=== PATIENT | female | born 1930 | race Caucasian/White ===

== ENCOUNTER 2017-02-27 07:56 | Outpatient (CLI) | payer MEDICARE, BC ==
[~2017-02-27] VITALS: Ht 157.5 cm; Wt 47.3 kg
--- NOTE | ~2017-02-27 | HEMODYNAMI ---
PATIENT:ALPA COFFEY MEDICAL RECORD: [id number] : 34 LOCATION:D.CAT ADMISSION DATE: 02/27/17 Generatedon:02/27/201712:46 Patient name: ALPA COFFEY Patient #: [id number] : 1930 Date of study: 02/27/2017 Page: Of Hemodynamic Procedure Report Patient Data Patient Demographics Procedure consent was obtained First Name: ALPA Gender: Female Last Name: ERLINDA : 1930 Middle Initial: D Age: 86 year(s) Patient #: [id number] Race: SSN: [id number] Additional ID: [id number] Contact details [address]: [address] [place] [address] e3 State: [place] City: [place] Zip code: [address] Past Medical History Allergies Allergen Reaction Date Comments Reported Sulfa drugs 05/15/2016 Other allergy 05/15/2016 Levaquin, NSAIDS, Erythromycin, Fish Oil, Reglan NSAIDs 05/18/2016 Fluvastatin 05/18/2016 Sulfa drugs 05/18/2016 Other allergy 05/18/2016 EES, FISH OIL, LEVAQUIN, REGEAN, LESCOL Other allergy 02/27/2017 NSAIDS, Lescol, Sulfa, EES, Fish oil, Levaquin, Reglan. Admission Admission Data Admission Date: 02/27/2017 Admission Time: 7:56 Admit Source: Other Height (in.): 62 BSA: 1.45 (m2) Height (cm.): 157.48 BMI: 19.2 (kg/m2) Weight (lbs.): 105 Weight (kg.): 47.63 Lab Results Lab Result Date: 02/27/2017 Lab Result Time: 8:50 Biochemistry Name Units Result Min Max BUN mg/dl 12 --(-*--)-- 7 18 Creatinine mg/dl 0.5 -*(----)-- 0.6 1.3 CBC Name Units Result Min Max Hematocrit % 39.2 -*(----)-- 42 54 Hemoglobin g/dl 13.4 -*(----)-- 13.5 17.5 Procedure Procedure Types Cath Procedure Diagnostic Procedure LHC Coronaries only FFR/IVUS Intra-Coronary IVUS Initial PCI Procedure Coronary Stent Initial Procedure Description Procedure Date Procedure Date: 02/27/2017 Procedure Start Time: 12:27 Procedure End Time: 12:44 Procedure Staff Name Function Ubaldo Brewster MD Performing Physician Lisbeth Lynch RT Scrub Juma Mclaughlin RN Nurse Ric Roberts RT Monitor Procedure Data Cath Procedure Fluoroscopy Diagnostic fluoroscopy Total fluoroscopy Time: 4.1 time: 4.1 min min Diagnostic fluoroscopy Total fluoroscopy dose: 424 dose: 424 mGy mGy Contrast Material Contrast Material Type Amount (ml) Isovue 300 53 Entry Location Entry Primary Successful Side Size Upsize Upsize Entry Closure Singh ccessful Closure Location (Fr) 1 (Fr) 2 (Fr) Remarks Device Remarks Radial Right 6 Fr Mechanical artery Short Compression Diagnostic catheters Device Type Used For End Catheter Placement Diagnostic Terumo 5Fr Procedure Cuttyhunk 110cm catheter Procedure Complications No complications Procedure Medications Medication Administration Route Dosage Oxygen NC 2 l/min Heparin Flush Bag added to field 2 bags (1000units/500ml NS) 0.9% NaCl I.V. 100 ml/hr Radial Cocktail added to field 1 syringe (Verapomil 2mg/Nitro 400mcg/Heparin 1500units) Fentanyl I.V. 50 mcg Versed I.V. 1 mg Radial Cocktail I.A. 1 syringe (Verapomil 2mg/Nitro 400mcg/Heparin 1500units) Radial Cocktail I.A. 1 syringe (Verapomil 2mg/Nitro 400mcg/Heparin 1500units) Fentanyl I.V. 50 mcg Versed I.V. 1 mg Heparin Bolus I.V. 2500 units Hemodynamics Rest BSA: 1.45 (m2) HGB: 13.4 (g/dl) O2 Consumption: Estimated: 122.27 (ml/min) O2 Co nsumption indexed: Estimated:84.32 (ml/min/m) Heart Rate: 58 (bpm) Snapshots Pre Cath Intra NCS Post Cath Vital Signs Time Heart Resp SPO2 NIBP (mmHg) Rhythm Pain Sedation Rate (ipm) (%) Status Level (bpm) 12:11:37 60 17 95 166/60(119) NSR 0 (11) 10(A) , No pain 12:16:03 59 17 99 158/58(114) NSR 0 (11) 10(A) , No pain 12:20:29 57 18 98 141/51(107) NSR 0 (11) 10(A) , No pain 12:24:49 59 18 97 121/50(93) NSR 0 (11) 10(A) , No pain 12:29:03 72 19 96 126/51(106) NSR 0 (11) 9(A) , No pain 12:33:21 61 18 96 111/42(79) NSR 0 (11) 9(A) , No pain 12:37:33 59 17 96 101/41(73) NSR 0 (11) 9(A) , No pain 12:41:41 60 19 97 105/41(68) NSR 0 (11) 9(A) , No pain Medications Time Medication Route Dose Verified Delivered Reason Note s Effectiveness by by 12:17:19 Oxygen NC 2 l/min Juma Dennison Per physician Arnoldo Mclaughlin RN RN 12:17:30 Heparin Flush added 2 bags Juma Dennison used for Bag to Arnoldo Mclaughlin meat and seafood manager (1000units/500ml RN NS) 12:17:39 0.9% NaCl I.V. 100 Juma Dennison Per physician ml/hr Arnoldo Mclaughlin RN RN 12:17:47 Radial Cocktail added 1 Juma Dennison used for (Verapomil to syringe Arnoldo Mclaughlin RN procedure 2mg/Nitro field RN 400mcg/Heparin 1500units) 12:28:46 Fentanyl I.V. 50 mcg Juma Dennison for sedation Arnoldo Mclaughlin RN RN 12:28:51 Versed I.V. 1 mg Juma Dennison for sedation Arnoldo Mclaughlin RN RN 12:30:32 Radial Cocktail I.A. 1 Juma Conner for (Verapomil syringe Arnoldo Brewster MD vasodilation 2mg/Nitro RN 400mcg/Heparin 1500units) 12:34:11 Radial Cocktail I.A. 1 Juma Conner for (Verapomil syringe Arnoldo Brewster MD vasodilation 2mg/Nitro RN 400mcg/Heparin 1500units) 12:34:15 Fentanyl I.V. 50 mcg Juma Dennison for sedation Arnoldo Mclaughlin RN RN 12:34:20 Versed I.V. 1 mg Juma Dennison for sedation Arnoldo Mclaughlin RN RN 12:34:37 Heparin Bolus I.V. 2500 Juma Dennison for units Arnoldo Mclaughlin RN anticoagulation project manager retail Log Time Note 11:02:45 Time tracking: Regular hours 11:02:49 Plan of Care:Hemodynamics will remain stable., Cardiac rhythm will remain stable., Comfort level will be maintained., Respiratory function will remain adequate., Patient/ family verbilizes understanding of procedure., Procedure tolerated without complication., Recovers from procedure without complications.. 11:45:47 Ric Roberts RT(R) sent for patient. Start room use. 11:52:45 Admit Source: Other 11:59:52 Patient received from Pre/Post Procedure Room to CCL 2 Alert and oriented. Tansferred to table in Supine position. 11:59:53 Warm blankets applied, and ivana hugger turned on for patient comfort. 11:59:53 Correct patient and procedure confirmed by team. 11:59:54 Signed procedure consent form obtained from patient. 11:59:55 ECG and BP/O2 sat monitors applied to patient. 11:59:56 Full Disclosure recording started 12:10:20 Vital chart was started 12:16:40 Baseline sample Acquired. 12:16:46 Rhythm: sinus rhythm 12:16:55 H&P Date Dictated: 02/26/2017 Within 30 days and on chart., H&P Addendum completed by physician on day of procedure. (MUST COMPLETE FOR ALL OUTPATIENTS). 12:16:56 Pre-procedure instructions explained to patient. 12:16:56 Pre-op teaching completed and patient verbalized understanding. 12:16:58 Family in waiting room. 12:17:00 Patient NPO since Midnight. 12:17:19 Oxygen 2 l/min NC was administered by Juma Mclaughlin RN; Per physician; 12:17:30 Heparin Flush Bag (1000units/500ml NS) 2 bags added to field was administered by Juma Mclaughlin RN; used for procedure; 12:17:39 0.9% NaCl 100 ml/hr I.V. was administered by Juma Mclaughlin RN; Per physician; 12:17:47 Radial Cocktail (Verapomil 2mg/Nitro 400mcg/Heparin 1500units) 1 syringe added to field was administered by Juma Mclaughlin RN; used for procedure; 12:18:29 Patient allergic to Other allergyNSAIDS, Lescol, Sulfa, EES, Fish oil, Levaquin, Reglan. 12:18:31 Is the patient allergic to Iodine/contrast media? No. 12:18:32 Is patient on blood thinner?Yes 12:18:34 ACC The patient was administered the following blood thiners within the last 24 hours: ACCPlavix 12:18:35 Patient diabetic? No. 12:18:37 Previous problem with sedation/anesthesia? No ? 12:18:38 Snore? Yes 12:18:38 Sleep apnea? Yes 12:18:39 Deviated septum? No 12:18:40 Opens mouth fully? Yes 12:18:40 Sticks out tongue? Yes 12:18:44 Airway obstruction? Yes COPD 12:18:46 Dentures? No ? 12:18:49 Modified Yuval's test Ulnar < 7 seconds 12:18:51 Patient pain scale 0/10 ?. 12:18:56 IV patent on arrival in left hand with 0.9% NaCl at [facility]. 12:21:56 Lab Result : BUN 12 mg/dl 12:21:56 Lab Result : Creatinine 0.5 mg/dl 12:21:56 Lab Result : Hemoglobin 13.4 g/dl 12:21:56 Lab Result : Hematocrit 39.2 % 12:22:00 Lab results completed and on chart. 12:22:03 Right Radial & Right Groin area was prepped with chlora-prep and draped in sterile fashion 12:22:04 Alarms reviewed by R. N. 12:22:04 Sharps counted by scrub and verified by R.N. 12:22:08 Use device set Radial Dx 12:22:12 Tegaderm 4 x 4 opened to sterile field. 12:22:13 Acist Manifold opened to sterile field. 12:22:14 Acist Hand Control opened to sterile field. 12:22:14 Acist Syringe opened to sterile field. 12:22:15 Farah Whisper J 300cm 0.014 guide wire opened to sterile field. 12:22:15 Medline Cath Pack opened to sterile field. 12:22:15 Bag Decanter opened to sterile field. 12::16 Terumo 6Fr Slender Glidesheath opened to sterile field. 12:22:16 St Freddie 260cm J .035 wire opened to sterile field. 12::31 Physician paged 12:: Physician arrived 12:: --------ALL STOP TIME OUT------ 12::52 Final Timeout: patient, procedure, and site verified with staff and physician. All members of the team are in agreement. 12::53 Right Radial & Right Groin site verified by team. 12::56 Physical assessment completed. ASA score P 2 - A patient with mild systemic disease as per Ubaldo Brewster MD. 12::59 Sedation plan: IV Moderate Sedation Versed, Fentanyl 12:27:40 Procedure started. 12::44 Local anesthetic to right radial artery with Lidocaine 2% by Ubaldo Brewster MD.INITIAL ACCESS ONLY 12::54 A 6 Fr Short sheath was inserted into the Right Radial artery 12::08 Patient Height : 157.48 cm 12:28:11 Patient Weight : 47.63 kg 12:28:46 Fentanyl 50 mcg I.V. was administered by Juma Mclaughlin RN; for sedation; 12::51 Versed 1 mg I.V. was administered by Juma Mclaughlin RN; for sedation; 12::22 A Diagnostic Terumo 5Fr Cuttyhunk 110cm catheter was advanced over the wire and used for Procedure. 12:29:39 Zero performed for pressure channel P1 12:30:32 Radial Cocktail (Verapomil 2mg/Nitro 400mcg/Heparin 1500units) 1 syringe I.A. was administered by Ubaldo Brewster MD; for vasodilation; 12:30:32 LCA angiography performed. 12:31:24 RCA angiography performed. 12:34:11 Radial Cocktail (Verapomil 2mg/Nitro 400mcg/Heparin 1500units) 1 syringe I.A. was administered by Ubaldo Brewster MD; for vasodilation; 12:34:15 Fentanyl 50 mcg I.V. was administered by Juma Mclaughlin RN; for sedation; 12:34:20 Versed 1 mg I.V. was administered by Juma Mclaughlin RN; for sedation; 12:34:25 [place] Pettigrew Eagleye IVUS Catheter opened to sterile field. 12:34:26 Medtronic Launcher 6Fr AR 2.0 guide catheter opened to sterile field. 12:34:27 Therio BasixCompak Inflation Kit opened to sterile field. 12:34:31 Catheter removed. 12:34:37 Heparin Bolus 2500 units I.V. was administered by Juma Mclaughlin RN; for anticoagulation; 12:34:43 6 Fr AR 2 guide catheter was inserted over the wire 12:34:47 WHISPER wire advanced. 12:36:00 Wire advanced across lesion. 12:36:04 IVUS catheter advanced over wire. 12:37:56 IVUS pass to RCA lesion performed. 12:37:57 IVUS catheter removed over wire. 12:38:00 Study PCI Site: [place] dRCA has 85% stenosis. 12:39:22 Inflation Number: 1 A Biofreedom 3.5 x 24 stent (No Cost Implant) was prepped and advanced across the Dist RCA. The stent was deployed at 15 DOLORES for 0:10 (min:sec). 12:40:02 Stent catheter was removed intact over wire. 12:40:02 Wire removed. 12:40:03 Guide catheter removed. 12:40:09 Terumo TR Band Standard opened to sterile field. 12:40:16 Sheath removed intact; hemostasis achieved with Mechanical Compression to the Right Radial artery. 12:40:18 Procedure ended.(Physican Out) 12:41:24 Fluoroscopy time 04.10 minutes. 12:41:28 Flurop Dose total: 424 12:41:28 Fluoroscopy dose: 424 mGy 12:42:29 Contrast amount:Isovue 300 53ml. 12:42:30 Sharps counted by scrub and verified by R.N. 12:42:33 TR band inflated with 11cc of air. 12:42:34 Insertion/operative site no bleeding no hematoma. 12:42:46 Post right radial artery:stable 12:42:49 Post Procedure Pulses reassessed and unchanged 12:42:52 Post-procedure physical assessment completed. ASA score P 2 - A patient with mild systemic disease as per Ubaldo Brewster MD. 12:42:54 Post procedure rhythm: unchanged. 12:42:55 Post procedure instruction explained to patient.Patient verbalizes understanding. 12:43:20 Procedure type changed to Cath procedure, Diagnostic procedure, [facility], Coronaries only, FFR/IVUS, Intra-Coronary IVUS Initial, PCI procedure, Coronary Stent Initial 12:44:22 Procedure and supply charges have been captured, reviewed, submitted and are correct. 12:44:34 Procedure Complication : No complications 12:44:35 Vital chart was stopped 12:44:36 See physician's report for complete and final results. 12:44:37 Report given to Pre/Post Procedure Room. 12:44:39 Patient transfered to Pre/Post Procedure Room with Stretcher. 12:44:41 Procedure ended. 12:44:41 Full Disclosure recording stopped 12:44:51 ACC-PCI Only Patient was given prescriptions, or instructed by Ubaldo Brewster MD to start/continue the following medications upon discharge: Plavix 12:45:55 End room use (Document Last) Intervention Summary Intervention Notes Time ActionType Lesion and Equipment Action# Pressure Duration Attributes Used 12:39:22 Place stent Dist RCA Biofreedom 1 15 00:10 3.5 x 24 stent (No Cost Implant) Device Usage Item Name Manufacture Quantity Catalog Hospital Part Current Minimal Lot# / Number Charge Number Stock Stock Serial# Code Tegaderm 4 3M 1 [id number] [id number] 266981 5 x 4 Acist Acist 1 68414 657257 541645 403260 5 Manifold Medical Systems Inc Acist Hand Acist 1 73013 987853 983812 012517 5 Control Medical Systems Inc Acist Acist 1 39186 013923 435514 364030 20 Syringe Medical Systems Inc Medline Cardinal 1 [id number] 220899 64755 418346 5 Cath Pack Health Bag Microtek 1 2001S 104869 17658 014153 5 bizk.it Inc. Terumo 6Fr Terumo 1 [id number] 453999 691439 124290 [address] Freddie 1 014752 382132 271968 203798 30 260cm J .035 wire Diagnostic Terumo 1 42-8088 075784 170523 143155 5 Terumo 5Fr Cuttyhunk 110cm catheter [place] Abingdon 1 [id number] 068211 803794 246874 8 Pettigrew Eagleye IVUS Catheter Medtronic Medtronic 1 [id number] 224214 89550 263344 1 Launcher 6Fr AR 2.0 guide catheter Merit Merit 1 [id number] 258346 090605 912513 15 BiogazelleixWowonyBridgePoint Medical Medical Inflation Kit Biofreedom Biosensors 1 [facility]2-3524 817232 936080 5 [id number] 3.5 x 24 [place] SA stent (No Cost Implant) Terumo TR Terumo 1 [id number] 638883 255505 478801 40 Band Standard Farah Farah 1 [id number] 123360 376687 334252 5 Whisper J Vascular 300cm 0.014 guide wire Signature Audit Dairy Stage Time Signature Unsigned Intra-Procedure 02/27/2017 Ric Roberts 12:46:44 PM RT(R) Signatures Monitor : Ric Roberts RT Signature : Date : Time : [facility] [address] [place] [address]
[~2017-02-27 07:56] MED LIST: ANTIVERT25 MG PO; BAYER CHEWABLE81 MG PO; BIOTIN PO; CLARITIN 10 MG10 MG PO; CO Q-10400 MG PO; CRESTOR10 MG PO; DEXILANT60 MG PO; DITROPAN X5 MG/BOTTL PO; FERRETTS324 MG PO; GAS-X125 M1 PO; GLUCOSAMINE HC500 MG PO; LUTEIN20 MG PO; MIRALAX17 GM PO; MULTIPLE VITAMI1 TA1 PO; NASACORT10.8 ML NASAL; OXYBUTYNIN CHLOR5 MG PO; PLAVIX75 MG PO; SINGULAIR10 MG PO; SYSTANE 0.3-0.4%5 ML EACH EYE; TOPROL XL100 MG PO; VITAMIN B-122500 MCG PO; VITAMIN D5000 UNIT PO
[2017-02-27] MEDS ORDERED: FLUTICASONE PRO16 GM NASAL (08:38)
[2017-02-27] MEDS ORDERED: SINGULAIR10 MG PO (08:40)
[2017-02-27] MEDS ORDERED: HYDROCODON-ACE1 EAC7 PO (08:42)
[2017-02-27 08:47] VITALS: BP 189/54; Ht 157.5 cm; Wt 47.3 kg
[2017-02-27 09:03] LABS: BASOPHILS 0.2 % (0-2); EOSINOPHILS 1.7 % (0-7); HEMATOCRIT 39.2 % (36.0-48.0); HEMOGLOBIN 13.4 g/dL (12-16); IMMATURE GRANULOCYTES 0.8 % (0-5); LYMPHOCYTES 32.9 % (15-50); MCH 31.9 pg (26.0-34.0); MCHC 34.2 g/dL (31.0-37.0); MCV 93.3 fL (80.0-100.0); MEAN PLATELET VOLUME 9.9 fL (7.4-10.4); MONOCYTES 10.9 % (2-11); NEUTROPHILS 53.5 % (40-80); PLATELET COUNT 178 10x3/uL (130-400); RDW 13.1 % (11.5-14.5)
[2017-02-27 09:16] LABS: CALC OSMOLALITY 265 mosm/kg (275-300); CALCIUM 8.6 mg/dL (8.5-10.1); CARBON DIOXIDE 26.3 mmol/L (21.0-32.0); CHLORIDE - SERUM 98 mmol/L (98-107); CREATININE - SERUM 0.5 mg/dL (0.6-1.3); GLUCOSE 98 mg/dL (74-106); POTASSIUM - SERUM 4.5 mmol/L (3.5-5.1); SODIUM 133 mmol/L (136-145); UREA NITROGEN 12 mg/dL (7-18); eGFR NON AFRICAN AMERICAN > 90 mL/min (90-120)
[2017-02-27 10:31] LABS: CKMB 2.3 U/L (0.0-3.6); CREATINE KINASE 74 UL (21-215); TROPONIN-I 0.027 ng/mL (0.000-0.060)
--- NOTE | 2017-02-27 13:16 | NUR ---
1300 RECEIVED PT FROM SPEECH LANG PATH THERAPIST, PT IS ALERT. DENIES ANY C/O CHEST PAIN, VSS. SINUS NATANAEL WITH RATE OF 59. DAUGHTER AT BEDSIDE, CALL LIGHT IN REACH. 1315 SANDWICH TRAY AND PO FLUIDS SERVED. PT DENIES ANY C/O. DAUGHTER AT BEDSIDE.
[2017-02-27] MEDS ORDERED: PLAVIX75 MG PO (13:43)
[2017-02-27] MEDS ORDERED: BAYER CHEWABLE81 MG PO (13:45)
--- NOTE | 2017-02-27 13:54 | NUR ---
1345 PT HAS TOLERATED SANDWICH, GRAPES AND PO FLUIDS WITH NO C/O NAUSEA. TR BAND IS CDI, AREA FREE FROM BLEEDING OR HEMATOMA. FINGERS WARM, CAP REFILL IS BRISK. SINUS BRADYCARDIA, DENIES ANY C/O CHEST PAIN.
[2017-02-27] MEDS ORDERED: MOBIC7.5 MG PO (14:25)
--- NOTE | 2017-02-27 16:04 | NUR ---
1445 PT ASSISTED TO THE BATHROOM X 2 NURSES, VOIDED QS. SMALL HEMATOMA NOTED AT TR BAND SITE UPON RETURN TO HER ROOM. KINSEY BLEVINS NOTIFIED, PRESSURE HELD AT SITE. 1448 KINSEY BLEVINS HERE WITH PT, ADJUSTED TR BAND WILL CONTINUE TO MONITOR, 1452 HEMATOMA ENLARGING, PRESSURE HELD AT SITE. STAMPING MILL TENDER NOTIFIED. 1456 KINSEY BLEVINS FROM STAMPING MILL TENDER HERE, READJUSTED TR BAND, LARGE HEMATOMA TO HAND AND WRIST BELOW CATH SITE AREA. WILL CONTINUE TO MONITOR. 1508 HEMATOMA ENLARGING, KINSEY BLEVINS HERE, TR BAND REMOVED AND PRESSURE HELD AT SITE. 1520 FEMSTOP APPLIED TO RIGHT BRACHIAL AREA BY STAMPING MILL TENDER STAFF. FINGERS RIGHT HAND ARE WARM, CAP REFILL IS BRISK, BANDAID APPLIED TO CATH SITE. PT HAS RECEIVED NORCO 10 MG PO FOR C/O PAIN TO RIGHT HAND AND ARM. 1525 DR MATA HERE WITH PT ASSESSING CATH SITE. HAS SPOKEN WITH FAMILY AND PT AND STATES WANTS TO ADMIT PT FOR OVERNIGHT OBSERVATION, PT AND FAMILY ARE AGREEABLE. DR MATA PUTTING IN ORDERS FOR ADMISSION.
--- NOTE | 2017-02-27 16:25 | NUR ---
[address], NO NEW BLEEDING OR HEMATOMA NOTED. FINGERS ARE WARM, CAP REFILL IS BRISK. PT DENIES ANY N/V DEFICIT TO HAND. DAUGHTER AT BEDSIDE. RADIAL PULSE IS PALPABLE. PT ABLE TO WIGGLE FINGERS AD WOO.
--- NOTE | 2017-02-27 16:40 | NUR ---
1600 NO CHANGE NOTED TO RIGHT HAND OR ARM, HEMATOMA NOT ENLARGING. PT DOES HAVE OOZING SMALL AMOUNT OF BLOOD FROM BANDAID PLACED TO SKIN OPENING RIGHT WRIST WHERE TR BAND EDGE HAD BEEN. DAUGHTER AT BEDSIDE, WILL CONTINUE TO MONITOR. 1630 NO CHANGE NOTED TO ARM/ HAND, HEMATOMA IS STABLE AND NOT ENLARGING. KINSEY BLEVINS HERE ASSESSING PT. CAP REFILL TO HAND IS BRISK, FINGERS WARM, RADIAL PULSE PALPABLE. HEMATOMA SOFTENING, HAND AND WRIST WITH LARGE AMOUNT OF BRUISING. PT HAS BEEN ON BEDPAN AND HAD LARGE BM. DENIES ANY OTHER C/O.
--- NOTE | 2017-02-27 17:55 | NUR ---
1730 HALF OF AIR REMOVED FROM FEMSTOP, NO BLEEDING OR NEW HEMATOMA NOTED. 1750 ALL AIR REMOVED FROM FEMSTOP AND FEMSTOP REMOVED. NO BLEEDING OR NEW HEMATOMA NOTED. FINGERS WARM, PT IS ABLE TO WIGGLE AD WOO. DENIES ANY N/V DEFICIT. RADIAL PULSE IS PALPABLE, CAP REFILL IS BRISK. SWELLING TO HAND AND WRIST UNCHANGED. DAUGHTER AT BEDSIDE. PT HAS VOIDED QS USING BEDPAN.
--- NOTE | 2017-02-27 18:30 | NUR ---
RECEIVED PT TO ROOM 0 FROM INSPECTOR ELEVATORS VIA [employer] SoftwareRMARGARETH IN STABLE CONDITION AAOX4 RT ARM NOTED WITH HEMATOMA REVIEWED WITH INSPECTOR ELEVATORS NURSE ON MEASURING TO ENSURE NO MORE BLEEDING WILL CONTINUE TO MONITOR
--- NOTE | 2017-02-27 18:43 | NUR ---
1825 PT TRANSFERRED TO ROOM 2119 VIA BED. RIGHT WRIST/ ARM UNCHANGED. NO INCREASE IN SWELLING TO ARM/ WRIST. SLIGHT OOZING TO SIDE OF WRIST WHERE TR BAND EDGE CAUSED SMALL OPENING TO SKIN, APPROX 1 CM IN LENGTH. DAUGHTER AT BEDSIDE. REPORT AND CARE TO ASHLEY SHELL.
[2017-02-27 20:01] VITALS: BP 131/47
--- NOTE | 2017-02-27 23:27 | NUR ---
THIS SHIFT PATIENT'S WRIST AND FOREARM HAVE BEEN MEASURED. NO INCREASE IN SWELLING . SCANT AMT OF BLEEDING FROM INCISION SITE. ABD PLACED AND WRIST WRAPPED LOOSELY WITH KERLIX. WRIST IS CYANOTIC BUT CAP REFILL IS LESS THAN 3 SEC. HAND ELEVATED ON PILLOW. MEASUREMENTS HAVE BEEN MADE Q1.
[2017-02-28 00:17] VITALS: BP 137/37
[2017-02-28 04:46] VITALS: BP 154/88
--- NOTE | 2017-02-28 05:43 | NUR ---
DRESSING CHANGED AROUND SKIN TEAR. NO CHANGE IN MEASUREMENTS ON WRIST AND FOREARM. HAND ELEVATED.
[2017-02-28 08:19] VITALS: BP 153/42
--- NOTE | 2017-02-28 09:00 | NUR ---
TELEMETRY SR. RIGHT ARM SWOLLEN AND BRUICED. DAUGHTER AT BS. WILL CONT. PLAN OF CARE.
--- NOTE | 2017-02-28 10:30 | NUR ---
DR. MATA AT . PA CANCELLED. NEW ORDERS GIVEN. WILL CONT. PLAN OF CARE.
--- NOTE | 2017-02-28 11:00 | NUR ---
NORCO 2 TABS GIVE. WARM PACK APPLIED TO RIGHT HAND. WILL CONT. TO MONITOR PAIN.
[2017-02-28 12:05] VITALS: BP 186/40
--- NOTE | 2017-02-28 13:54 | OP ---
PATIENT NAME: ALPA COFFEY MEDICAL RECORD: [id number] :34 LOCATION:D.M2 D.0 ADMISSION DATE: SURGEON: CASSIUS MATA MD OPERATION DATE: 02/27/17 DATE OF OPERATION: 02/27/2017 PROCEDURES: 1. PTCA stent RCA. 2. Intravascular ultrasound. 3. Left heart catheterization. 4. Selective coronary angiography. 5. Left ventriculogram. INDICATION: Angina and coronary artery disease. PROCEDURE IN DETAIL: After informed consent was obtained and after detailed explanation of risks, benefits as well as alternative therapies, the patient elected to proceed with angiogram and angioplasty. The right radial area was prepped and draped in normal sterile fashion. Right radial artery was cannulated via modified Seldinger technique with placement of 6-Czech sheath. All catheters exchanged through this sheath. FINDINGS: Left ventriculogram was performed in the standard 30-degree ROSARIO view reveals good cardiac wall motion throughout all segments. Overall ejection fraction estimated 60%. SELECTIVE CORONARY ANGIOGRAPHY: 1. Left main showed no significant angiographic disease. 2. Left anterior descending has mild irregularities, but no flow-limiting stenosis. 3. The left circumflex has moderate irregularities, but no flow-limiting stenosis. 4. Right coronary has a previously placed stent in the distal aspect. This had greater than 85% in-stent restenosis confirmed by intravascular ultrasound. PTCA STENT OF THE RCA: There is JEANNINE 3 flow before and after the intervention. The lesion was a 20 mm lesion and a 3.5 vessel. This was addressed with a 3.5 x 24 mm BioFreedom stent. Result was 0% residual stenosis, JEANNINE-3 flow. IMPRESSION: Successful percutaneous transluminal coronary angioplasty stent of the right coronary artery going from 85% initial stenosis to 0% residual stenosis. TRANSINT:[id number] Voice Confirmation ID: [id number] DOCUMENT ID: [id number] CASSIUS MATA MD at 1354 CC: [id number] DICTATION DATE: 02/27/17 1252 CHIEF UNDERWRITER: 02/27/172044 [facility] [address] [place] [address]
--- NOTE | 2017-02-28 14:19 | NUR ---
RESTS WITH EYES CLOSED. NO S/S PAIN OR ANXIETY NOTED.
[2017-02-28 19:00] VITALS: BP 137/46
--- NOTE | 2017-02-28 20:03 | NUR ---
RESUMED CARE OF PT, LYING IN BED RESPIRATIONS EVEN AND UNLABORED ON 2LPM VIA NC. 65 SR ON TELEMETRY. RIGHT ARM HEMATOMA ENCOMPASSING FOREARM AND HAND, STRONG RADIAL PULSE. WARM COMPRESS TO ARM. NO NEEDS VOICED AT THIS TIME, CALL LIGHT IN REACH. SEE NURSE ASSESSMENT. WILL CONTINUE TO MONITOR.
[2017-03-01] VITALS: BP 147/50
[2017-03-01 08:17] VITALS: BP 153/55
--- NOTE | 2017-03-01 10:24 | NUR ---
ONE TIME NORCO 10/325MG #[address] AMTA AND GIVEN TO PT
--- NOTE | 2017-03-01 10:31 | NUR ---
DRSG APPLIED TO SKIN TEAR TO RIGHT ARM. IV AND TELEMETRY DCD. DC PLANS GIVEN. UNDERSTANDING VOICED.
--- NOTE | 2017-03-01 11:03 | NUR ---
ESCORTED TO CAR BY W/C.
--- NOTE | 2017-03-02 11:24 | DS ---
PATIENT:ALPA RESENDIZ :34 MEDICAL RECORD: [id number] DISCHARGE SUMMARY ADMISSION DATE: 02/27/17 DISCHARGE DATE: 03/01/17 DISCHARGE DIAGNOSES: 1. Angina. 2. Coronary artery disease. 3. Percutaneous transluminal coronary angioplasty stent this admission. 4. Hypertension. 5. Hyperlipidemia. 6. Chronic nonsteroidal antiinflammatory drug therapy Meloxicam. HOSPITAL COURSE: Mrs. Resendiz presents with anginal symptomatology, found to have single-vessel coronary artery disease, underwent PTCA stent. Stable postop course from a cardiac standpoint, but had a bleed of the entry site at the wrist. She developed a quite a large hematoma. She was kept overnight for stabilization of this. From vascular standpoint, the hand was just fine. The hematoma had improved. She was discharged home with the addition of Plavix and aspirin to her medical regimen. We will follow up with [facility] in 1 week for reevaluation of the hematoma. TRANSINT:[id number] Voice Confirmation ID: [id number] DOCUMENT ID: [id number] CASSIUS MATA MD at 1124 CC: [id number] DICTATION DATE: 03/01/17 0852 CELEBRITY CHEF ENTREPRENEUR MEDIA PERSONALITY: 03/02/17 0145 DEP CLI 03/01/17 [place] [id number] [place] [address]
== END 2017-03-01 11:04 | disposition home or self-care (01) ==
LOC: D.CATH 07:56 → D.M2 18:25 → D.CATH 03-01 11:04
PROVIDERS: Internal Medicine Interventional Cardiology
DX: I25.119 Atherosclerotic heart disease of native coronary artery with unspecified angina pectoris (principal); T82.855A Stenosis of coronary artery stent, initial encounter; Z00.6 Encounter for examination for normal comparison and control in clinical research program; I10 Essential (primary) hypertension; E78.5 Hyperlipidemia, unspecified; Z79.1 Long term (current) use of non-steroidal anti-inflammatories (NSAID); Z01.812 Encounter for preprocedural laboratory examination
CPT/HCPCS: 93458; 92978; C9600

== ENCOUNTER 2017-03-15 06:30 | Day surgery (SDC) | payer MEDICARE, BC ==
[2017-03-14 16:26] LABS: BASOPHILS 0.2 % (0-2); EOSINOPHILS 1.4 % (0-7); HEMATOCRIT 39.2 % (36.0-48.0); HEMOGLOBIN 13.2 g/dL (12-16); IMMATURE GRANULOCYTES 0.6 % (0-5); LYMPHOCYTES 27.4 % (15-50); MCH 32.2 pg (26.0-34.0); MCHC 33.7 g/dL (31.0-37.0); MCV 95.6 fL (80.0-100.0); MEAN PLATELET VOLUME 9.5 fL (7.4-10.4); MONOCYTES 8.6 % (2-11); NEUTROPHILS 61.8 % (40-80); PLATELET COUNT 197 10x3/uL (130-400); RDW 12.8 % (11.5-14.5); WBC 8.7 10x3/uL (4.8-10.8)
[2017-03-14 16:31] LABS: APTT 26.2 SECONDS (22.8-39.4); INR 1.05 (0.85-1.17); PROTIME 13.5 SECONDS (11.6-15.0)
[~2017-03-15] VITALS: Ht 157.5 cm; Wt 47.7 kg
[~2017-03-15 06:30] MED LIST changes: +FLUTICASONE PRO16 GM NASAL; +HYDROCODON-ACE1 EAC7 PO; +MOBIC7.5 MG PO
[2017-03-15 08:42] VITALS: BP 149/69; BMI 19.2
--- NOTE | 2017-03-15 19:22 | NUR ---
1920 Around 1700, patient complaining of pain of a 10 and was very lethargic. At this time, daughter (@ bedside) stated she would prefer for her mom to be admitted and the patient agreed. R hand very swollen but cap refill of a 3. Dr. Knapp notified and came to bedside at 1830. He performed a doppler of hand and there was good arterial flow. He loosened the dressing and stated he would put orders in for patient to be admitted for obs. At this time, new IV placed (previous IV pulled for discharge) and [place] 10 given. Report given to Miesha Villanueva RN who will transfer patient when bed assignment given.
--- NOTE | 2017-03-15 19:37 | NUR ---
193 REPORT TO SHANI WARD NURSE BY LIAM KHALIL R.N.
[2017-03-15 20:00] VITALS: BP 146/52
--- NOTE | 2017-03-15 20:10 | NUR ---
RECEIVED FROM OP VIA BED. ALERT/ORIENTED X4. RT HAND IS VERY SWOLLEN AND BRUISED. ELEVATED ON 3 PILLOWS. DRSG C/D/I. IV IN L WRIST WITH NS INFUSING AT KVO. O2 AT 2L/NC. RR 18 EVEN U/L, SAT'S AT 94%. RATES PAIN LEVEL AT 6 ON NUMBER SCALE. REQUESTED ASSISTANCE TO BR TO VOID. HER DAUGHTER IS PRESENT IN ROOM.
--- NOTE | 2017-03-15 21:55 | NUR ---
ADMIN SCHED PEPCID IV AND NORCO 10MG PO PER REQUEST FOR C/O RIGHT ARM PAIN LEVEL 8 ON NUMBER SCALE, DESCRIBED THROBBING REAL BAD. HER GRANDSON IS STAYING WITH HER TONIGHT.
[2017-03-16] VITALS: BP 125/49
--- NOTE | 2017-03-16 01:40 | NUR ---
RETURNING TO BED FROM BATHROOM. ADMIN NORCO 10/325 MG FOR C/O RT HAND/ARM PAIN. REQUESTED ICE PACK REFILLED.
[2017-03-16 03:51] VITALS: BP 146/52; Ht 157.5 cm; Wt 47.7 kg
[2017-03-16 05:24] VITALS: BP 134/45
--- NOTE | 2017-03-16 06:00 | NUR ---
ADMIN NORCO 10/325 MG FOR C/O PAIN. REQUESTED ANOTHER BLANKET.
--- NOTE | 2017-03-16 07:30 | NUR ---
AM ROUNDS COMPLETED. PT IS A&O RESTING QUIETLY IN BED. RR NONLABORED ON RA. SHIFT ASSESSMENT COMPLETED. PTS R.HAND IS EXTREMELY SWOLLEN DARK BRUISED AND HAS DRSG IN PLACE. PT WILL NOT ALLOW ME TO TOUCH IT TO CHECK FOR PULSES BUT STATES DOPPLERED THEM YESTERDAY IN PROCEDURE AND WILL COME BY TODAY TO CHANGE IT. PTS DAUGHTER IS AT BEDSIDE. PT HOPING TO BE DISCHARGED AFTER ROUNDS TODAY. CL IN REACH, BED IN LOWEST, SIDE RAILS X2. WILL CPOC.
[2017-03-16 07:43] VITALS: BP 139/44
--- NOTE | 2017-03-16 10:33 | NUR ---
AT BEDSIDE TO DO DRSG CHANGE TO [place]. PT WILL BE DISCHARGED HOME AND IS EXCITED ABOUT THAT. DRSG TO STAY IN PLACE UNTIL APPT ON SUNDAY PER . WILL GET DISCAHRGE PAPERS AND CONTINUE WITH PLAN OF CARE.
--- NOTE | 2017-03-16 10:58 | NUR ---
WENT OVER DC INSTRUCTIONS WITH PT AND PT DAUGHTER BOTH VERBALIZE UNDERSTANDING. GIVEN DC INSTRUCTIONS TO PT DAUGHTER. DC PIV WITH CATH TIP INTACT. OFFERED HELP WITH PT GETTING DRESSED, BOTH DECLINED. WILL LET STAFF KNOW WHEN READY FOR A WHEELCHAIR DOWN TO FRONT ENTRANCE.
--- NOTE | 2017-03-23 11:49 | HP ---
PATIENT: ALPA COFFEY MEDICAL RECORD: [id number] ACCOUNT: [id number] LOCATION:[facility] : 34 ADMISSION DATE: 03/15/17 HISTORY AND PHYSICAL EXAMINATION CHIEF COMPLAINT: Swelling. HISTORY OF PRESENT ILLNESS: The patient presented to my office yesterday with an expansile pulsatile mass overlying a puncture site at the right radial artery. The patient underwent a right radial coronary arteriogram with an intervention. Subsequently, she had bleeding and subcutaneous swelling that happened almost immediately after decannulation, she states. The swelling decreased. Now, the swelling has increased markedly. The area overlying the radial artery puncture site is erythematous. It is not draining, it is indurated, it is swollen and it is enlarging. I am going to plan for pseudoaneurysm repair under tourniquet in the operating room. The risks, possible complications and alternatives to procedure were explained to the patient. She elects to proceed. ALLERGIES: LESCOL, NSAIDS, SULFA, FISH OIL, LEVAQUIN, REGLAN AND ERYTHROMYCIN. HOME MEDICATIONS: Please see the nursing list. PAST MEDICAL AND SURGICAL HISTORY: Positive for heart disease. Positive for high blood pressure. Negative for fainting or seizures. Negative for rheumatic fever. Negative for diabetes. Negative for thyroid disease. Positive for COPD. She is on oxygen at home. SOCIAL HISTORY: Ex-smoker. PHYSICAL EXAMINATION: GENERAL: The patient does not appear acutely ill. She does not appear chronically ill. VITAL SIGNS: Reviewed. HEAD: External ears appear normal. EYES: Extraocular movements are intact. NECK: Trachea is midline. CHEST: No intercostal retractions. PULMONARY: Nonlabored and no stridor. IMPRESSION: Pseudoaneurysm versus abscess, likely pseudoaneurysm overlying a puncture site at the right radial artery. PLAN: Right radial arterial repair in the operating room. TRANSINT:[id number] Voice Confirmation ID: [id number] DOCUMENT ID: [id number] HISTORY AND PHYSICAL [id number] ALONAMARIEALPA ROBERT MD at 1149 CC: MARELY ROBINS MD and CASSIUS MATA MD [id number] DICTATION DATE: 03/15/17 1222 DEALER COMPLIANCE REPRESENTATIVE: 03/15/17 1256 [facility] 03/16/17 [place] [id number]
== END 2017-03-16 12:09 | disposition home or self-care (01) ==
LOC: D.OPS 06:30 → D.M2 06:30 → D.OPS 10:00 → D.PAN 10:00 → D.M2 19:34 → D.OPS 03-16 12:09
PROVIDERS: Anesthesiology
DX: I77.0 Arteriovenous fistula, acquired (principal); I10 Essential (primary) hypertension; Z01.810 Encounter for preprocedural cardiovascular examination; Z01.811 Encounter for preprocedural respiratory examination; Z01.812 Encounter for preprocedural laboratory examination

== ENCOUNTER 2017-03-22 15:28 | Emergency (ER) | payer MEDICARE, BC ==
[2017-03-22 16:26] LABS: BASOPHILS 0.3 % (0-2); EOSINOPHILS 2.3 % (0-7); HEMATOCRIT 37.3 % (36.0-48.0); HEMOGLOBIN 12.4 g/dL (12-16); IMMATURE GRANULOCYTES 0.6 % (0-5); LYMPHOCYTES 22.3 % (15-50); MCH 32.3 pg (26.0-34.0); MCHC 33.2 g/dL (31.0-37.0); MCV 97.1 fL (80.0-100.0); MONOCYTES 12.5 % (2-11); PLATELET COUNT 188 10x3/uL (130-400); RBC 3.84 10x6/uL (4.00-5.40); RDW 12.7 % (11.5-14.5); WBC 6.5 10x3/uL (4.8-10.8)
== END 2017-03-22 16:50 | disposition home or self-care (01) ==
LOC: D.ER 15:28
PROVIDERS: Emergency Medicine
DX: S00.03XA Contusion of scalp, initial encounter (principal); X58.XXXA Exposure to other specified factors, initial encounter; Y93.89 Activity, other specified; Y92.89 Other specified places as the place of occurrence of the external cause; I10 Essential (primary) hypertension; K58.9 Irritable bowel syndrome, unspecified

== ENCOUNTER 2018-11-17 15:53 | Emergency (ER) | payer MEDICARE, BC | END 2018-11-17 19:35 | disposition home or self-care (01) | LOC: D.ER 15:53 | DX: M79.651 Pain in right thigh (principal) ==

== ENCOUNTER 2019-07-10 20:11 | Observation (INO) | payer MEDICARE, BC ==
[~2019-07-10] VITALS: Ht 157.5 cm; Wt 95.9 kg
--- NOTE | 2019-07-10 20:30 | NUR ---
FAMILY REPORTS PT HAS HAD MULTIPLE GLASSES OF WINE TONIGHT
--- NOTE | 2019-07-10 20:30 | NUR ---
POC GLUCOSE 107
[2019-07-10] MEDS ORDERED: OMEPRAZOLE20 M1 PO (20:41)
[2019-07-10] MEDS ORDERED: TOPROL XL25 MG PO (20:41)
[2019-07-10 20:47] LABS: BASOPHILS 0.3 % (0-2); EOSINOPHILS 2.2 % (0-7); HEMATOCRIT 37.8 % (36.0-48.0); HEMOGLOBIN 12.6 g/dL (12-16); IMMATURE GRANULOCYTES 0.5 % (0-5); LYMPHOCYTES 44.6 % (15-50); MCH 31.7 pg (26.0-34.0); MCHC 33.3 g/dL (31.0-37.0); MEAN PLATELET VOLUME 10.3 fL (7.4-10.4); MONOCYTES 8.9 % (2-11); NEUTROPHILS 43.5 % (40-80); PLATELET COUNT 183 10x3/uL (130-400); RBC 3.98 10x6/uL (4.00-5.40); RDW 13.3 % (11.5-14.5); WBC 7.7 10x3/uL (4.8-10.8)
[2019-07-10 20:55] LABS: APTT 24.3 SECONDS (22.8-39.4); CALC OSMOLALITY 277 mosm/kg (275-300); CALCIUM 8.7 mg/dL (8.5-10.1); CARBON DIOXIDE 23.7 mmol/L (21.0-32.0); CHLORIDE - SERUM 104 mmol/L (98-107); CREATININE - SERUM 0.5 mg/dL (0.6-1.3); GLUCOSE 109 mg/dL (74-106); INR 1.06 (0.85-1.17); POTASSIUM - SERUM 3.9 mmol/L (3.5-5.1); PROTIME 13.3 SECONDS (11.6-15.0); SODIUM 138 mmol/L (136-145); UREA NITROGEN 15 mg/dL (7-18); eGFR NON AFRICAN AMERICAN > 90 mL/min (90-120)
[2019-07-10 20:55] LABS: APPEARANCE CLEAR (CLEAR); BILIRUBIN NEGATIVE (NEGATIVE); COLOR YELLOW (YELLOW); GLUCOSE NEGATIVE (NEGATIVE); KETONE NEGATIVE (NEGATIVE); NITRITE NEGATIVE (NEGATIVE); PROTEIN NEGATIVE (NEGATIVE); UROBILINOGEN NORMAL (NORMAL)
[2019-07-10 21:09] LABS: ALBUMIN 3.4 g/dL (3.4-5.0); ALKALINE PHOSPHATASE 48 U/L (46-116); ALT (SGPT) 25 U/L (10-68); CREATINE KINASE 73 UL (21-215); LIPASE 170 U/L (73-393); MAGNESIUM - SERUM 2.2 mg/dL (1.8-2.4); PRO BNP 7071 pg/mL (0-450); PROTEIN - SERUM 7.3 g/dL (6.4-8.2); THYROID STIMULATING HORMONE 3.71 uIU/mL (0.36-3.74); TROPONIN-I 0.027 ng/mL (0.000-0.060)
[2019-07-10 21:21] VITALS: BP 137/91
--- NOTE | 2019-07-10 22:04 | NUR ---
JANKI ON [facility] REFUSED TO TAKE REPORT. NOTIFIED ED CHARGE NURSE
[2019-07-10 23:28] VITALS: BP 169/56; BMI 38.6
[2019-07-10] MEDS ORDERED: TOPROL XL50 MG PO (23:28)
--- NOTE | 2019-07-11 04:45 | NUR ---
PT FOUND IN HALLWAY CONFUSED. SHE STATED "I DON'T KNOW WHERE AM AT RIGHT." REORIENT PT TO TIME PLACE AND SITUATION. PT ASSISTED BACK IN BED. WARM BLANKET PROVIDED.
[2019-07-11 07:18] VITALS: Ht 157.5 cm; Wt 95.9 kg
--- NOTE | 2019-07-11 08:11 | NUR ---
ALERT AND ORIENTED. UP AB WOO. FAMILY AT BEDSIDE. TELEMERTY SHOWS SR. RIGHT FA SL. DENIES ANY NEEDS. WILL MONITOR
--- NOTE | 2019-07-11 16:06 | NUR ---
I have reviewed this patient and I concur with the Shift Assessment completed by the Licensed Practical Nurse today this shift.
[2019-07-11] MEDS ORDERED: TOPROL XL25 MG PO (17:33)
--- NOTE | 2019-07-11 18:46 | NUR ---
PT DISCHARGED. IV DCD WITH TIP INTACT. TO PRIVE CAR PER WHEELCHAIR
== END 2019-07-11 18:48 | disposition home or self-care (01) ==
LOC: D.ER 20:11 → OBSVTIME 20:42 → D.M2 20:42
PROVIDERS: Family Medicine; ADMIT Family Medicine; ATTEND Family Medicine
DX: I25.10 Atherosclerotic heart disease of native coronary artery without angina pectoris (principal); R07.9 Chest pain, unspecified; R53.1 Weakness; I11.0 Hypertensive heart disease with heart failure; I50.9 Heart failure, unspecified

== ENCOUNTER → 2020-05-24 14:32 | Outpatient (CLI) | payer MEDICARE, BC ==
[2019-07-11 07:18] VITALS: BMI 38.6
[~2020-05-24 14:32] MED LIST changes: +OMEPRAZOLE20 M1 PO; +TOPROL XL25 MG PO; +TOPROL XL50 MG PO
== END | disposition home or self-care (01) ==
LOC: D.MRI 14:32
PROVIDERS: ATTEND Family Medicine
DX: G31.84 Mild cognitive impairment of uncertain or unknown etiology (principal)